=== PATIENT | female | born 1985 | race Caucasian/White ===

== ENCOUNTER 2017-11-09 15:28 | Emergency (ER) | payer OTHER ==
--- NOTE | 2017-11-09 15:33 | PDOC ---
Rapid Medical Evaluation Time Seen by Provider: 11/09/17 15:29 Medical Evaluation: Allergies Allergy/AdvReac Type Severity Reaction Status Date / Time Penicillins Allergy Intermediate Rash Verified 09/06/16 14:23 liraglutide [From Saxenda] AdvReac Severe Fatigue Unverified 04/17/17 18:11 11/09/17 15:30 I have performed a brief in-person evaluation of this patient. The patient presents with a chief complaint of: employee needle stick, doesn't want PEP Pertinent physical exam findings: 2 needle stick sites to left palm I have ordered the following: cbc, cmp, HIV, Hep B, Hep C The patient will proceed to the ED for further evaluation. Discharge Disposition - Diagnosis Needle stick injury - Referrals Referrals: Dieudonne Schuster MD [Primary Care Provider] - - Patient Instructions - Post Discharge Activity
[2017-11-09 15:34] VITALS: BP 144/90; PULSE 106; TEMP 99.2; BMI 25.8
--- NOTE | 2017-11-09 16:04 | PDOC ---
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 Patient punctured her left hand thenar eminence in 2 places with a contaminated needle. Denies numbness or tingling to fingertips, no other injury. Hepatitis B and tetanus are all up-to-date. Timing: this afternoon Severity: mild Exposed Location: Left: Hand(s) (left thenar eminance ) Assessing Significant Risk PEP: Yes Percutaneous, Yes Blood, Yes Potentially Infectious Fluid Past History - Travel Traveled outside of the country in the last 30 days: No Close contact w/someone who was outside of country & ill: No - Past Medical History Allergies/Adverse Reactions: Allergies Allergy/AdvReac Type Severity Reaction Status Date / Time Penicillins Allergy Intermediate Rash Verified 09/06/16 14:23 liraglutide [From Saxenda] AdvReac Severe Fatigue Unverified 04/17/17 18:11 Home Medications: Ambulatory Orders Ethinyl Estradiol/Drospirenone [Ocella 3 Mg-0.03 Mg Tablet] 1 each PO ASDIR tablet 09/22/15 Cholecalciferol (Vitamin D3) [Vitamin D3] 5,000 unit PO DAILY tablet 11/12/15 Asthma: Yes Cardiac Disorders: No CVA: No COPD: No Diabetes: No HTN: No - Suicide/Smoking/Psychosocial Hx Smoking Status: Yes Smoking History: Former smoker Have you smoked in the past 12 months: No Number of Cigarettes Smoked Daily: 3 Information on smoking cessation initiated: No Hx Alcohol Use: No Drug/Substance Use Hx: No Substance Use Type: None Review of Systems - Review of Systems Able to Perform ROS?: Yes Is the patient limited Slovenian proficient: Yes Constitutional: Yes: See HPI. No: Symptoms Reported, Fever, Loss of Appetite HEENTM: No: Symptoms Reported Respiratory: No: Symptoms reported Musculoskeletal: Yes: Symptoms Reported, See HPI. No: Joint Swelling All Other Systems: Reviewed and Negative *Physical Exam - Vital Signs Last Vital Signs Temp Pulse Resp BP Pulse Ox 99.2 F 106 H 20 144/90 100 11/09/17 15:30 11/09/17 15:30 11/09/17 15:30 11/09/17 15:30 11/09/17 15:30 - Physical Exam General Appearance: Yes: Nourished, Appropriately Dressed. No: Apparent Distress HEENT: positive: ESPERANZA, Normal ENT Inspection, TMs Normal, Pharynx Normal Neck: positive: Supple Respiratory/Chest: positive: Lungs Clear Gastrointestinal/Abdominal: positive: Soft Extremity: positive: Normal Capillary Refill, Normal Range of Motion. negative : Normal Inspection Integumentary: positive: Normal Color, Other (2 puncture wounds noted to thenar eminence of left hand palmar aspect. Has full range of motion to finger/thumb with strong flexion and extensions without tenderness. No active bleeding, no swelling) Neurologic: positive: design analyst II-XII NML intact, Fully Oriented, Alert, Normal Mood/ Affect, Normal Response, Motor Strength 5/5 Post Exposure - ED Protocol - Exposure Treatment Washing/Decontamination: Soap/Water Source Patient HIV Status:: Unknown Is PEP indicated?: No Prophylaxis for HIV discussed?: Yes Prophylaxis given?: No Prophylaxis refused?: Yes Baseline bloods drawn prophylaxis:(use *Exposure-Hosp Emp): Yes - Referrals Employee Referred to Employee Health:: Yes *DC/Admit/Observation/Transfer Diagnosis at time of Disposition: Needle stick injury - Discharge Dispostion Disposition: HOME Condition at time of disposition: Stable Admit: No - Referrals Referrals: Dieudonne Schuster MD [Primary Care Provider] - - Patient Instructions Printed Discharge Instructions: How to Handle Body Fluid 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
[2017-11-09 16:42] LABS: ALBUMIN 3.6 g/dl (3.4-5.0); ANION GAP 8 (8-16); BLOOD UREA NITROGEN 12 mg/dL (7-18); CHLORIDE 105 mmol/L (98-107); CO2 23 mmol/L (21-32); CREATININE 0.8 mg/dL (0.55-1.02); GLUCOSE,RANDOM 101 mg/dL (74-106); POTASSIUM 3.9 mmol/L (3.5-5.1); SGOT/AST 10 U/L (15-37); SGPT/ALT 23 U/L (12-78); SODIUM 136 mmol/L (136-145)
[2017-11-09 16:47] LABS: ALK PHOS 80 U/L (45-117); BILIRUBIN,TOTAL 0.3 mg/dL (0.2-1.0); TOT PROT 7.8 g/dl (6.4-8.2)
[2017-11-11 06:11] LABS: HBsAG SCREEN Negative (Negative); HEPATITIS B CORE ANTIBODY Negative (Negative)
== END 2017-11-09 18:02 | disposition home or self-care (01) ==
LOC: JER 15:28 → JERFT 15:28
DX: T14.90XA Injury, unspecified, initial encounter (principal); W46.0XXA Contact with hypodermic needle, initial encounter; X58.XXXA Exposure to other specified factors, initial encounter; Y93.89 Activity, other specified; Y92.238 Other place in hospital as the place of occurrence of the external cause; Y99.0 Civilian activity done for income or pay; Z87.891 Personal history of nicotine dependence; J45.909 Unspecified asthma, uncomplicated
CPT/HCPCS: 36415; 80053; 84702; 86704; 86803; 87340; 87389; 99281-25